=== PATIENT | female | born 1960 | race Two or more races ===

== ENCOUNTER 2020-12-14 09:43 | Emergency (ER) | payer MEDICAID ==
[~2020-12-14] VITALS: Ht 162.6 cm; Wt 71.2 kg
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
--- NOTE | 2020-12-14 09:47 | NUR ---
AT BEDSIDE FOR EVAL.
--- NOTE | 2020-12-14 09:58 | NUR ---
PT IS WHEELED TO CT SCAN VIA [facility].
[2020-12-14] MEDS ORDERED: IBUP-1955 PO (10:01)
[2020-12-14 11:59] VITALS: BP 133/91
--- NOTE | 2020-12-14 11:59 | NUR ---
Patient discharged to home in stable condition. Written and verbal after care instructions given. Patient verbalizes understanding of instruction.
== END 2020-12-14 11:59 | disposition home or self-care (01) ==
LOC: ER 09:48
DX: S16.1XXA Strain of muscle, fascia and tendon at neck level, initial encounter (principal); S09.8XXA Other specified injuries of head, initial encounter; R07.89 Other chest pain; V49.49XA Driver injured in collision with other motor vehicles in traffic accident, initial encounter; Y93.89 Activity, other specified; Y92.413 State road as the place of occurrence of the external cause; Y99.8 Other external cause status
CPT/HCPCS: 70450-TC; 71045-TC; 72125-TC